=== PATIENT | female | born 1995 | race Hispanic/Latino ===

== ENCOUNTER 2023-11-23 16:00 | Emergency (ER) | payer OTHER ==
[~2023-11-23] VITALS: Ht 154.9 cm; Wt 81.6 kg
[2023-11-23 16:36] LABS: HEMATOCRIT 41.7 % (36-48); MEAN CORPUSCULAR HEMOGLOBIN 30.5 pg (27.0-33.0); MEAN CORPUSCULAR HGB CONC 34.1 g/dL (32.0-36.0); MEAN CORPUSCULAR VOLUME 89.5 fL (79-99); RED BLOOD CELL COUNT(AUTO) 4.66 MIL/uL (4.00-5.50); RED CELL DISTRIBUTION WIDTH 13.6 % (11.0-15.5); WHITE BLOOD COUNT (AUTO) 11.5 K/uL (4.8-10.8)
[2023-11-23 16:56] LABS: CREATININE 0.7 mg/dL (0.5-1.0); POTASSIUM 3.4 mmol/L (3.5-5.1)
[2023-11-23 17:00] LABS: ALBUMIN 3.7 g/dL (3.5-5.0); BILIRUBIN,TOTAL 0.6 mg/dL (0.2-1.0); TOTAL PROTEIN, SERUM 7.8 g/dL (6.0-8.3)
[2023-11-23] MEDS: 0.9%NACL 1000ML 1,000 ML IV ONE (17:18)
[2023-11-23] MEDS: ONDANSETRON 4MG INJ IVP ONE (17:26)
[2023-11-23 17:50] VITALS: BP 102/53; PULSE 104; RESP 16; O2SAT 98
[2023-11-23] MEDS ORDERED: FAMO-136 PO (18:08)
[2023-11-23] MEDS ORDERED: ONDA4TAB10 PO (18:08)
== END 2023-11-23 18:15 | disposition home or self-care (01) ==
LOC: EDH 16:00
DX: R11.10 Vomiting, unspecified (principal); K62.5 Hemorrhage of anus and rectum
CPT/HCPCS: 99283; 96374; 96361; 82270; 80053; 85027; 86850; 86900; 86901; 36415; J7030; J2405

== ENCOUNTER 2024-04-26 20:36 | Emergency (ER) | payer SELFPAY ==
[~2024-04-26] VITALS: Ht 154.9 cm; Wt 89.4 kg
[~2024-04-26 20:36] MED LIST: FAMO-136 PO; ONDA-243 PO
[2024-04-26 20:40] VITALS: BP 118/73; PULSE 108; RESP 18; TEMP 98.3
[2024-04-26 21:16] LABS: RAPID GROUP A STREP positive (NEGATIVE); SARS-CoV-2, RNA, NAAT NEGATIVE SARS CoV-2 (NEGATIVE)
[2024-04-26 21:21] LABS: INFLUENZA TYPE A Negative For Type A (NEGATIVE); INFLUENZA TYPE B Negative For Type B (NEGATIVE)
[2024-04-26] MEDS: acetaMINOPHEN 500 MG TABLET PO ONE (21:25)
[2024-04-26] MEDS: AMOX/CLAV 875/125MG TAB PO ONE (21:25)
[2024-04-26] MEDS ORDERED: AMOX1TAB16 PO (21:53)
== END 2024-04-26 22:03 | disposition home or self-care (01) ==
LOC: EDH 20:36
DX: J03.00 Acute streptococcal tonsillitis, unspecified (principal); Z20.822 Contact with and (suspected) exposure to COVID-19
CPT/HCPCS: 87635; 87804; 87880